=== PATIENT | male | born 1935 | race Hispanic/Latino ===

== ENCOUNTER → 2017-07-19 | Outpatient (CLI) | payer OTHER ==
[~2017-07-19] MED LIST: CLIN150C9 PO; HYDR12.530 PO; LOSA50TA2 PO; LOSA50TA37 PO
== END | disposition home or self-care (01) ==
LOC: SHCH 08:52
PROVIDERS: ATTEND Internal Medicine Cardiovascular Disease
DX: I50.22 Chronic systolic (congestive) heart failure (principal); I08.0 Rheumatic disorders of both mitral and aortic valves; I25.2 Old myocardial infarction; I77.810 Thoracic aortic ectasia; Z95.2 Presence of prosthetic heart valve; Z95.0 Presence of cardiac pacemaker
CPT/HCPCS: 93306

== ENCOUNTER 2017-07-30 12:47 | Observation (INO) | payer OTHER ==
[2017-07-30] VITALS (9 sets, daily range): BP systolic 132–174; BP diastolic 64–88
[~2017-07-30] VITALS: Ht 172.7 cm; Wt 81.0 kg
[2017-07-30 13:28] LABS: CREATININE 1.1 mg/dL (0.5-1.5)
[2017-07-30 13:29] LABS: BASOPHILS % (AUTO) 0.5 % (0.0-5.0); EOSINOPHILS % (AUTO) 0.9 % (0.0-8.0); HEMATOCRIT 38.6 % (42-54); LYMPHOCYTES % (AUTO) 41.4 % (21.0-51.0); MEAN CORPUSCULAR HEMOGLOBIN 32.8 pg (27.0-33.0); MEAN CORPUSCULAR HGB CONC 34.9 g/dL (32.0-36.0); MEAN CORPUSCULAR VOLUME 93.8 fL (79-99); MONOCYTES % (AUTO) 4.1 % (3.0-13.0); NEUTROPHILS % (AUTO) 53.1 % (40.0-77.0); NUCLEATED RED BLOOD CELLS 0.1 % (0.0-0.19); PLATELET COUNT (AUTO) 117 K/uL (130-400); RED BLOOD CELL COUNT(AUTO) 4.11 MIL/uL (4.50-6.20); RED CELL DISTRIBUTION WIDTH 15.1 % (11.0-15.5); WHITE BLOOD COUNT (AUTO) 7.5 K/uL (4.8-10.8)
[2017-07-30 13:30] LABS: INR 1.07 (0.85-1.15); PARTIAL THROMBOPLASTIN TIME 28.8 SEC (26.3-35.5); PROTHROMBIN TIME 11.2 SEC (9.6-11.6)
[2017-07-30 13:58] LABS: BILIRUBIN,TOTAL 0.9 mg/dL (0.2-1.0)
[2017-07-30 13:59] LABS: ALBUMIN 3.6 g/dL (3.5-5.0)
[2017-07-30] MEDS ORDERED: LOSA50TA37 PO (17:34)
[2017-07-30] MEDS ORDERED: BUPIVACAINE/PF 0.25% 30ML VIAL IJ ONE (17:51)
[2017-07-30] MEDS ORDERED: LIDOCAINE HCL 1% MDV 50ML VIAL ONE (17:52)
[2017-07-30] MEDS ORDERED: CEFAZOLIN 1GM / D5W 50ML 0 ML ONE (17:52)
[2017-07-30] MEDS ORDERED: VANCOMYCIN 1GM+NS 250ML 500 ML IV ONE (18:13)
[2017-07-30] MEDS ORDERED: ACETAMINOPHEN 325 MG TAB PO PRN (19:00)
[2017-07-30] MEDS: CLINDAMYCIN HCL 150 MG CAP PO SCH (20:47)
[2017-07-31] MEDS: CLINDAMYCIN HCL 150 MG CAP PO SCH ×3 (00:46→10:27)
[2017-07-31 03:45] VITALS: BP 139/65
[2017-07-31 07:26] VITALS: BP 161/79
[2017-07-31] MEDS ORDERED: HYDR12.530 PO (08:04)
[2017-07-31] MEDS ORDERED: LOSA50TA2 PO (08:04)
[2017-07-31] MEDS ORDERED: CLIN150C9 PO (08:04)
[2017-07-31] MEDS ORDERED: LOSARTAN 50 MG TABLET PO SCH (09:00)
== END 2017-07-31 10:00 | disposition home or self-care (01) ==
LOC: EDH 12:47 → EDHIP 12:48 → 2AH 15:14
PROVIDERS: ADMIT Internal Medicine Cardiovascular Disease; ATTEND Internal Medicine Cardiovascular Disease
DX: I44.2 Atrioventricular block, complete (principal); Z79.899 Other long term (current) drug therapy; I48.91 Unspecified atrial fibrillation; E78.5 Hyperlipidemia, unspecified; I50.9 Heart failure, unspecified
CPT/HCPCS: 33228; 36415; 80053; 85025; 85610; 85730; C1785; G0378 ×21; J3370; J3490 ×2; J0690

== ENCOUNTER → 2018-04-16 | Outpatient (CLI) | payer OTHER ==
[~2018-04-16] MED LIST changes: -LOSA50TA37 PO
== END | disposition home or self-care (01) ==
LOC: SHCH 07:58
PROVIDERS: ATTEND Internal Medicine Cardiovascular Disease
DX: R06.09 Other forms of dyspnea (principal); I50.42 Chronic combined systolic (congestive) and diastolic (congestive) heart failure; I48.0 Paroxysmal atrial fibrillation; M47.815 Spondylosis without myelopathy or radiculopathy, thoracolumbar region; Z95.2 Presence of prosthetic heart valve
CPT/HCPCS: 71046; 93306

== ENCOUNTER → 2018-05-27 | Outpatient (CLI) | payer OTHER ==
[~2018-05-27] MED LIST changes: +IOHEXOL-350 75 ML VIAL IV ONE
== END | disposition home or self-care (01) ==
LOC: RAH 12:37
PROVIDERS: ATTEND Family Medicine
DX: J90 Pleural effusion, not elsewhere classified (principal); M47.815 Spondylosis without myelopathy or radiculopathy, thoracolumbar region; I48.2 Chronic atrial fibrillation
CPT/HCPCS: 71275; Q9967

== ENCOUNTER → 2018-07-03 | Outpatient (CLI) | payer OTHER ==
[~2018-07-03] MED LIST changes: -IOHEXOL-350 75 ML VIAL IV ONE
== END | disposition home or self-care (01) ==
LOC: RAH 08:46
PROVIDERS: ATTEND Internal Medicine Gastroenterology
DX: K21.9 Gastro-esophageal reflux disease without esophagitis (principal)
CPT/HCPCS: 74240

== ENCOUNTER → 2018-09-17 | Outpatient (CLI) | payer OTHER | END | disposition home or self-care (01) | LOC: SHCH 10:45 | PROVIDERS: ATTEND Internal Medicine Cardiovascular Disease | DX: I87.2 Venous insufficiency (chronic) (peripheral) (principal) | CPT/HCPCS: 93970 ==

== ENCOUNTER 2018-10-06 18:05 | Inpatient (IN) | payer OTHER ==
[~2018-10-06] VITALS: Ht 172.7 cm; Wt 77.0 kg
[2018-10-06] MEDS ORDERED: SODIUM CHLORIDE 0.9% 1000ML 1,000 ML IV ONE (19:34)
[2018-10-06 19:42] LABS: BASOPHILS % (AUTO) 1.5 % (0.0-5.0); EOSINOPHILS % (AUTO) 2.6 % (0.0-8.0); LYMPHOCYTES % (AUTO) 25.3 % (21.0-51.0); MEAN CORPUSCULAR HEMOGLOBIN 31.5 pg (27.0-33.0); MEAN CORPUSCULAR HGB CONC 33.3 g/dL (32.0-36.0); MEAN CORPUSCULAR VOLUME 94.5 fL (79-99); NEUTROPHILS % (AUTO) 60.6 % (40.0-77.0); NUCLEATED RED BLOOD CELLS 0.2 % (0.0-0.19); PLATELET COUNT (AUTO) 81 K/uL (130-400); RED BLOOD CELL COUNT(AUTO) 4.45 MIL/uL (4.50-6.20); RED CELL DISTRIBUTION WIDTH 25.8 % (11.0-15.5); WHITE BLOOD COUNT (AUTO) 5.5 K/uL (4.8-10.8)
[2018-10-06 20:02] LABS: INR 1.39 (0.85-1.15); PARTIAL THROMBOPLASTIN TIME 35.9 SEC (26.3-35.5); PROTHROMBIN TIME 14.5 SEC (9.6-11.6)
[2018-10-06 20:03] LABS: CREATININE 1.8 mg/dL (0.5-1.5); POTASSIUM 3.4 mmol/L (3.5-5.1)
[2018-10-06 20:14] LABS: PLATELET MORPHOLOGY COMMENT SLIGHTLY DECREASED
[2018-10-06 20:24] LABS: ALBUMIN 2.7 g/dL (3.5-5.0); TOTAL PROTEIN, SERUM 5.6 g/dL (6.0-8.3)
[2018-10-07] VITALS (18 sets, daily range): BP systolic 88–109; BP diastolic 48–69
[2018-10-07] MEDS ORDERED: FURO40TA5 PO (01:55)
[2018-10-07] MEDS ORDERED: HYDR-3421 PO (01:55)
--- NOTE | 2018-10-07 10:00 | NUR ---
cm note met with patient and spouse and daughter kadie. pt resides athome with spouse, has daughter who assists as well. pt uses cane , no other dme. able to do own bath. did provide pt/family with [facility] on aging information for assistance with provider /transport if needed. verbalize understanding states no other dc needs. dc plan is back to home, with daughter to assist as needed. Addendum: 10/07/18 at 1812 by RENE SAGASTUME CM Amended: Links added.
--- NOTE | 2018-10-07 13:28 | NUR ---
[facility] for [facility] interrogation of PM here and minor adjustments made. Cardiology to f/u with update on PM.
--- NOTE | 2018-10-07 16:15 | NUR ---
Neymar KENNEDY rounding on pt.
--- NOTE | 2018-10-07 16:30 | NUR ---
Orders received to transfer pt to [facility]. Report called to KYLE Napoles. Pending US liver (low platelets). Patient NPO for US. patient in stable condition. In no distress. Transferred via wheelchair with family.
--- NOTE | 2018-10-07 16:45 | NUR ---
ARRIVAL TO [facility] AAOX4 DENIES CP DENIES SOB DENIES NV NO COMPLAINTS. FAMILY IS AT BEDSIDE.
[2018-10-07] MEDS: FUROSEMIDE 40 MG TABLET PO SCH (16:50)
[2018-10-07] MEDS: ASPIRIN 325MG EC TAB 325 MG TABLET.DR PO SCH (16:50)
[2018-10-07] MEDS: SPIRONOLACTONE 25 MG TAB PO SCH (21:16)
--- NOTE | 2018-10-08 | NUR ---
PT HAD DECREASED BLOOD PRESSURE. GIVEN ALDACTONE EARLIER. PT STATES FEELING FINE. NO DISTRESS NOTED. WILL MONITOR
[2018-10-08 03:29] VITALS: BP 96/54
[2018-10-08 04:13] LABS: HEMATOCRIT 38.8 % (42-54); MEAN CORPUSCULAR HGB CONC 34.1 g/dL (32.0-36.0); MEAN CORPUSCULAR VOLUME 93.9 fL (79-99); NUCLEATED RED BLOOD CELLS 0.4 % (0.0-0.19); PLATELET COUNT (AUTO) 78 K/uL (130-400); RED BLOOD CELL COUNT(AUTO) 4.13 MIL/uL (4.50-6.20); RED CELL DISTRIBUTION WIDTH 26.2 % (11.0-15.5); WHITE BLOOD COUNT (AUTO) 4.8 K/uL (4.8-10.8)
[2018-10-08 04:53] LABS: CREATININE 1.7 mg/dL (0.5-1.5); POTASSIUM 3.5 mmol/L (3.5-5.1)
[2018-10-08] MEDS: ASPIRIN 325MG EC TAB 325 MG TABLET.DR PO SCH (07:46)
[2018-10-08] MEDS: SPIRONOLACTONE 25 MG TAB PO SCH ×2 (07:46→21:00)
[2018-10-08] MEDS: FUROSEMIDE 40 MG TABLET PO SCH (07:46)
[2018-10-08 07:59] VITALS: BP 95/54
--- NOTE | 2018-10-08 08:00 | NUR ---
ASSESSMENT PT IS AAOX4 DENIES CP DENIES SOB DENIES NV NO COMPLAINTS SITTING UPRIGHT AT BEDSIDE. FAMILY IS AT BEDSIDE, CALL LIGHT WITHIN REACH. AM MEDS GIVEN AND TOLERATED BY PATIENT.
[2018-10-08 11:42] VITALS: BP 104/70
--- NOTE | 2018-10-08 12:40 | NUR ---
STATUS SITTING UP IN CHAIR, NO COMPLAINTS AT THIS TIME, FAMILY IS AT BEDSIDE.
[2018-10-08 16:14] VITALS: BP 101/63
--- NOTE | 2018-10-08 16:57 | NUR ---
DR ALEJO ROUNDED ENFORCED THAT PATIENT SHOULD BE MEASURING URINE IN URINAL, NOT TO VOID STRAIGHT TO TOILET. NURSE AIDE HAS TOLD PATIENT AND FAMILY SINCE AM TO VOID IN URINAL FOR MEASUREMENTS. I REMINDED PATIENT AND FAMILY OF IMPORTANCE OF STRICT MEASUREMENT OF URINE OUTPUT INTO URINAL. DAILY WEIGHTS ALSO INSTRUCTED REINFORCED WITH STANDING SCALE. PATIENT AGREES TO COMPLY.
[2018-10-08 19:17] VITALS: BP 94/62
--- NOTE | 2018-10-08 19:30 | NUR ---
PT AWARE OF STRICT I/O'S. TO VOID IN URINAL. FAMILY AWARE. WILL HAVE STANDING WEIGHT IN THE AM.
--- NOTE | 2018-10-08 21:20 | NUR ---
DR. SALGADO ROUNDED. NO NEW ORDERS. UPDATED ON PT STATUS.
[2018-10-08 23:33] VITALS: BP 94/63
[2018-10-09 03:00] VITALS: BP 99/60
--- NOTE | 2018-10-09 07:40 | NUR ---
ASSESSMENT ENCOUNTERED PT IN AMBROSE'S POSITION, A&OX3, HARD OF HEARING, CALM COOPERATIVE AND DOES NOT APPEAR TO BE IN ANY DISTRESS. PT DENIES PAIN, SOB, NAUSEA BUT DOES C/O DYSPNEA ON EXERTION. PT IS AMBULATORY, GAIT SLOW BUT STEADY WITH STAND BY ASSIST. PT IS ABLE TO TOLERATE FOODS FLUIDS WITH NO THROAT CLEARING OR COUGH. CALL LIGHT WITHIN REACH, FAMILY AT BEDSIDE.
[2018-10-09 08:00] VITALS: BP 100/59
[2018-10-09] MEDS ORDERED: TORSEMIDE 20 MG TAB PO SCH (09:00)
[2018-10-09] MEDS: SPIRONOLACTONE 25 MG TAB PO SCH (10:57)
[2018-10-09] MEDS: ASPIRIN 325MG EC TAB 325 MG TABLET.DR PO SCH (10:57)
[2018-10-09 11:06] LABS: CREATININE 1.9 mg/dL (0.5-1.5); POTASSIUM 4.7 mmol/L (3.5-5.1)
[2018-10-09 11:56] VITALS: BP 102/62
--- NOTE | 2018-10-09 15:00 | NUR ---
DISCHARGE INSTRUCTIONS GIVEN, PIV REMOVED AND INTACT, DISCHARGED HOME TO FAMILY VEHICLE VIA WHEELCHAIR.
== END 2018-10-09 15:41 | disposition home or self-care (01) | DRG 293 ==
LOC: EDH 18:05 → OBSVTOIN 22:45 → EDHIP 22:45 → 3AH 10-07 00:14 → 2AH 10-07 16:49
PROVIDERS: ADMIT Internal Medicine; ATTEND Internal Medicine
PROC: 4B02XSZ Measurement of Cardiac Pacemaker, External Approach (ICD-10-PCS; principal; 2018-10-06)
DX: I50.43 Acute on chronic combined systolic (congestive) and diastolic (congestive) heart failure (principal); G47.33 Obstructive sleep apnea (adult) (pediatric); I25.10 Atherosclerotic heart disease of native coronary artery without angina pectoris; I25.5 Ischemic cardiomyopathy; I35.2 Nonrheumatic aortic (valve) stenosis with insufficiency; I48.2 Chronic atrial fibrillation; I87.2 Venous insufficiency (chronic) (peripheral); N18.3 Chronic kidney disease, stage 3 (moderate); I25.2 Old myocardial infarction; Z79.01 Long term (current) use of anticoagulants; Z95.0 Presence of cardiac pacemaker; Z95.3 Presence of xenogenic heart valve; Z88.0 Allergy status to penicillin
CPT/HCPCS: 36415; 71045; 76705; 80048; 80053; 83880; 84484; 85025; 85027; 85610; 85730; 93005; 93306; G0378; J7030